=== PATIENT | female | born 1975 | race African-American/Black ===

== ENCOUNTER 2024-12-21 01:06 | Day surgery (SDC) | payer OTHER, MEDICAID, SELFPAY ==
--- OUTSIDE RECORDS SUMMARY | 2017-02-01 02:39 | XMS_ITS | Continuity of Care Document ---
Author Organization [facility] Address [address] [place] [address] Phone Care Team Providers Care Antitank Assault Gunner Name Role Phone Unavailable Unavailable Unavailable Medications Medication Instructions Dosage Effective Dates (start - stop) Status Comments methylprednisolone 4 mg tablets in a dose pack take as directed - Active metformin 500 mg tablet take 1 tablet by oral route 2 times every day with morning and evening meals 500 MG - Active cromolyn 4 % eye drops instill 1 drop by ophthalmic route 4 times every day into affected eye(s) 1.00 drop - No Longer Active Procedures Procedure Date Offic/outpt E&m [facility] Service(s) provided in the office during regularly Dexamethasone Na Phosphate 1 Mg 017 Methylprednisolone Acetate 80 Mg 2016 Therapeutic, Prophylactic, Or Diagnostic Inj Sub Q Advance Directives Directive Yes / No Effective Date File Name No Information Encounters Encounter Description Practice Location Reason(s) For Visit Diagnoses Date Provider Providers Copied on Encounter [facility], [address], [place], [place], [id number], tel:[phone] [facility] No Information No Information Offic/outpt E&m [facility], [address], [place], [place], [id number], tel:[phone] [facility] eye problem (chief complaint) Allergic reaction to chemical substance, undetermi [address] Emmanuel Forrest. [address], [place], [place], [id number], [place]. tel:[phone] Family History Family Member Type Diagnosis Age At Onset No Information Payers Payer name Insurance type Covered constitution party ID Authoriza tion(s) [facility] Multiplan [facility] [id number] Social History Type Description Quantity Date Captured Comments Sex Female Smoking Status No Information Chief Complaint And Reason For Visit No Information Reason For Referral Reason For Referral No Information History Of Present Illness Encounter Date Complaint History Of Prese nt Illness No Information Functional Status Date Functional Assessmen t No Information Instructions Date Instruction Additional Infor mation No Information Assessments Type Assessment Date No Information Patient Care Teams Name Effective Dates (start - stop) Status Members No Information
--- OUTSIDE RECORDS SUMMARY | 2017-06-07 | XMS_ITS | Encounter Summary ---
Author Organization [facility] Healthcare Address [address] [place] [address] Care Team Providers Care Shirt Sorter Name Role Phone Unavailable Primary Care Provider Unavailabl e Reason for Visit * Diagnostic Imaging (Routine) - Closed Specialty Diagnoses / Procedures Referred By Karen t Referred To Contact Procedures Breast Imaging Screening Outside Reference Referral, Self Referral ID Status Reason Start Date Expiration Date Visits Re quested Visits Authorized [id number] Closed 03/19/2022 04/18/2023 1 1 Encounter Details Date Type Department Care Team (Late st Contact Info) Description 06/07/2017 Hospital Encounter [facility] [address] [place] [id number] Social History Tobacco Use Types Packs/Day Years Used Date Smoking Tobacco: Never Passive Smoke Exposure: Never Alcohol Use Standard Drinks/Week Comments Yes 1 (1 standard drink = 0.6 oz pur e alcohol) AUDIT-C Answer Date Recorded Q1: How often do you have a drink containing alc ohol? 2-4 times a month 12/04/2024 Q2: How many drinks containi ng alcohol do you have on a typical day when you are drinking? 1 or 2 12/04/2024 Q3: How often do you have si x or more drinks on one occasion? Never 12/04/2024 Personal Safety Answer Date Recorded Have you ever been in or are you currently in a harmful physical or emotional relationship or is someone making you feel afraid or unsafe? 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 2-4 times a month 12/04/2024 1:17 PM ERMIAST Lenin Reddy R MA Q2: How many drinks containing alcohol do you have on a typical day when you are drinking? 1 or 2 12/04/2024 1:17 PM ERMIAST Lenin Reddy R MA Q3: How often do you have six or more drinks on one occasion? Never 12/04/2024 1:17 PM ERMIAST Lenin Reddy R MA documented as of this encounter Plan of Treatment Not on file documented as of this encounter Procedures Procedure Name Priority Date/Time Associated Diagnosis Comments BREAST IMAGING MG SCREENING OUTSIDE REFERENCE Routine 06/07/2017 12:00 AM CDT documented in this encounter Results * Breast Imaging Screening Outside Reference (06/07/2017 12:00 AM CDT) Impressions RAD_MAMMO_[facility] - 03/19/2022 10:53 AM DRIER BELT CONVEYOR These images are for Reference purposes only and have not been reviewed by [facility]iology. There will be no report generated by a [facility] Radiologist. Narrative RAD_MAMMO_[facility] - 03/19/2022 10:53 AM DRIER BELT CONVEYOR EXAMINATION: Images For Reference Purposes Only us Self Referral IMG MAMMO PROCEDURES Final Resul t [facility]_MAMMO[facility] documented in this encounter Visit Diagnoses Not on filedocumented in this encounter
--- OUTSIDE RECORDS SUMMARY | 2019-03-01 01:00 | XMS_ITS | Encounter Summary ---
Author Organization [facility] Healthcare Address [address] [place] [address] Care Team Providers Care Motor Vehicle Or Caravan Salesperson Name Role Phone Unavailable Primary Care Provider Unavailabl e Reason for Visit * Diagnostic Imaging (Routine) - Closed Specialty Diagnoses / Procedures Referred By Karen t Referred To Contact Procedures Breast Imaging Screening Outside Reference Referral, Self Referral ID Status Reason Start Date Expiration Date Visits Re quested Visits Authorized [id number] Closed 03/19/2022 04/18/2023 1 1 Encounter Details Date Type Department Care Team (Late st Contact Info) Description 03/01/2019 Hospital Encounter [facility]) [address] [place] [id number] Social History Tobacco Use Types Packs/Day Years [...] on file Legal Sex Female 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 2-4 times a month 12/04/2024 1:17 PM Lenin Ledesma R MA Q2: How many drinks containing alcohol do you have on a typical day when you are drinking? 1 or 2 12/04/2024 1:17 PM Lenin Ledesma R MA Q3: How often do you have six or more drinks on one occasion? Never 12/04/2024 1:17 PM Lenin Ledesma R MA documented as of this encounter Plan of Treatment Not on file documented as of this encounter Procedures Procedure Name Priority Date/Time Associated Diagnosis Comments BREAST IMAGING MG SCREENING OUTSIDE REFERENCE Routine 03/01/2019 12:00 AM FUMIGATOR AND STERILIZER documented in this encounter Results * Breast Imaging Screening Outside Reference (03/01/2019 12:00 AM FUMIGATOR AND STERILIZER) Impressions [facility]_MAMMO[facility] - 03/19/2022 10:52 AM FUMIGATOR AND STERILIZER These images are for Reference purposes only and have not been reviewed by [facility] Radiology. There will be no report generated by a [facility] Radiologist. Narrative RAD_MAMMO_[facility] - 03/19/2022 10:52 AM FUMIGATOR AND STERILIZER EXAMINATION: Images For Reference Purposes Only us Self Referral IMG MAMMO PROCEDURES Final Resul t RAD_MAMMO[facility] documented in this encounter Visit Diagnoses Not on filedocumented in this encounter
[2024-12-18 09:19] VITALS: BMI 38.7
--- OUTSIDE RECORDS SUMMARY | 2024-12-19 07:54 | XMS_ITS | Encounter Summary ---
Author Organization [facility] Healthcare Address [address] [place] [address] Care Team Providers Care Fishing Vessel Captain Name Role Phone Jose GHannah Primary Care Provider [phone] Reason for Visit * Diagnostic Imaging (Routine) - Pending Review Specialty Diagnoses / Procedures Referred By Karen chicas Referred To Contact Diagnoses Well woman exam Procedures Screening Mammogram Bilateral w Trace w Implants SCREENING MAMMOGRAM BILATERAL W TRACE Carrie Bowens, MACHO [address] [address] Phone: tel: fax: [facility] (All Locations) Referral ID Status Reason Start Date Expiration Date V isits Requested Visits Authorized [id number] Pending Review 12/04/2024 01/03/2026 1 1 Encounter Details Date Type Department Care Team (Latest Contact Info) Description 12/19/2024 7:54 AM CDT - 12/19/2024 11:59 PM CDT Hospital Encounter [facility] Breast [facility]) [address] [place] [phone] Well woman exam Discharge Disposition: Discharge to home or self care Social History Tobacco Use Types Packs/Day Years [...] on file Legal Sex Female 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 Gender Identity Not on file Sexual Orientation Not on file documented as of this encounter Last Filed Vital Signs Vital Sign Reading Time Taken Comments Blood Pressure - - Pulse - - Temperature - - Respiratory Rate - - Oxygen Saturation - - Inhaled Oxygen Concentration - - Weight 102.1 kg (225 lb) 12/19/2024 8:25 AM CDT Height 162.6 cm (5' 4) 12/19/2024 8:25 AM CDT Body Mass Index 38.62 12/19/2024 8:25 AM CDT documented in this encounter Medications at Time of Discharge acetaminophen (TYLENOL) 325 mg tablet Take 650 mg by mouth every 4 (four) hours as needed 09/27/2019 celecoxib (CeleBREX) 100 mg capsule TAKE 1 CAPSULE(100 MG) BY MOUTH TWICE DAILY 60 capsule 02/23/2021 colestipoL (COLESTID) 1 gram tablet 12/12/2024 cyclobenzaprine (FLEXERIL) 10 mg tabletIndication s:Traumatic incomplete tear of right rotator cuff, subsequent encounter Take 1 tablet (10 mg total) by mouth every 8 (eight) hours as needed for muscle spasms 20 tablet 01/28/2021 dextroamphetamin e-amphetamine (ADDERALL) 10 mg tablet 12/04/2020 diclofenac sodium (VOLTAREN) 1 % gel Apply 4 g topically 4 (four) times a day 12/22/2020 fluticasone propionate (FLONASE) 50 mcg/actuation nasal spray [place] 1 spray every day by intranasal route for 30 days. 02/28/2023 loperamide (IMODIUM A-D) 2 mg tablet Take 1 tablet twice a day by oral route. 11/05/2024 omeprazole (PriLOSEC) 20 mg capsule Take 20 mg by mouth daily before breakfast ondansetron (ZOFRAN) 4 mg tablet Take 1 tablet (4 mg total) by mouth every 6 (six) hours as needed for nausea or vomiting 12 tablet 11/23/2023 oxyCODONE-acetam inophen (PERCOCET) 5-325 mg per tabletIndication s:Pain Take 1 tablet by mouth every 4 (four) hours as needed for pain 12 tablet 11/23/2023 sodium fluoride-pot nitrate 1.1-5 % paste 12/15/2020 valsartan-hydroc hlorothiazide (DIOVAN-HCT) 320-25 mg per tablet Take 1 tablet every day by oral route for 90 days, for high blood pressure. 04/26/2023 documented as of this encounter Discharge Disposition Disposition Code Departure Means Destination Discharge to home or self care documented in this encounter Plan of Treatment Not on file documented as of this encounter Procedures Procedure Name Priority Date/Time Associated Diagnosis Comments SCREENING MAMMOGRAM BILATERAL W TRACE W IMPLANTS Schedule Routine, Read Routine (OP Routine) 12/19/2024 8:34 AM CDT Well woman exam documented in this encounter Results * Screening Mammogram Bilateral w Trace w Implants (12/19/2024 8:34 AM CDT) Anatomical Region Laterality Modality Breast Bilateral Mammography Impressions 12/20/2024 5:06 PM CDT Bilateral No evidence of malignancy in either breast. OVERALL BI-RADS FINAL ASSESSMENT: 2 - Benign RECOMMENDATION: Recommend bilateral annual screening mammography. Narrative 12/20/2024 5:06 PM CDT EXAMINATION: Screening Mammogram Bilateral w Trace w Implants: 12/19/2024 COMPARISON: Relevant prior studies available at the time of interpretation were reviewed, including the most recent mammogram on: 03/16/2022. TECHNIQUE: Mammography was performed with 2D and 3D digital breast tomosynthesis (DBT) images. CAD was utilized. BREAST PARENCHYMAL COMPOSITION: There are scattered areas of fibroglandular density. FINDINGS: Bilateral There is no suspicious mass, calcification, or architectural distortion in either breast. Bilateral silicone implants are present. Carrie Bowens NP IMG MAMMO PROCEDURES Final Result documented in this encounter Visit Diagnoses Diagnosis Well woman exam Routine general medical examination at a health care facility documented in this encounter Care Teams Fishing Vessel Captain Relationship Specialty Start Date End Date Hannah Araiza DO PCP - General Family Medicine 03/16/22 documented as of this encounter
--- OUTSIDE RECORDS SUMMARY | 2024-12-19 08:53 | XMS_ITS | Encounter Summary ---
Author Organization [facility] Healthcare Address [address] [place] [id number] Care Team Providers Care Boot And Saddle Repair Person Name Role Phone Hannah Araiza DO Primary Care Provider [phone] Reason for Referral * Diagnostic Imaging (Routine) - Closed Specialty Diagnoses / Procedures Referred By Contac t Referred To Contact Diagnoses Dysmenorrhea Pelvic and perineal pain Procedures US Pelvis Complete Carrie Bowens NP [address] [place] [address] Phone: tel: fax: [facility] (All Locations) Referral ID Status Reason Start Date Expiration Date Visits Re quested Visits Authorized [id number] Closed 12/04/2024 01/03/2026 1 1 Reason for Visit * Diagnostic Imaging (Routine) - Closed Specialty Diagnoses / Procedures Referred By Contac t Referred To Contact Diagnoses Dysmenorrhea Pelvic and perineal pain Procedures US Pelvis Complete Carrie Bowens NP [address] [address] Phone: tel: fax: [facility] (All Locations) Referral ID Status Reason Start Date Expiration Date Visits Re quested Visits Authorized [id number] Closed 12/04/2024 01/03/2026 1 1 Encounter Details Date Type Department Care Team (Latest Contact Info) Description 12/19/2024 8:53 AM CDT - 12/19/2024 11:59 PM CDT Hospital Encounter [facility] Ul[facility]ound [address] [facility], [address]th [address], [address] [facility] [place] [address] Dysmenorrhea Discharge Disposition: Discharge to home or self [...] on file Legal Sex Female 5:43 PM VEHICLE BODY SANDER Gender Identity Not on file Sexual Orientation Not on file documented as of this encounter Medications at Time of Discharge [...] fluticasone propionate (FLONASE) 50 mcg/actuation nasal spray [place] 1 spray every day by intranasal route [...] Procedure Name Priority Date/Time Associated Diagnosis Comments US PELVIS COMPLETE Schedule Routine, Read Routine (OP Routine) 12/19/2024 8:53 AM CDT Dysmenorrhea documented in this encounter Results * US Pelvis Complete (12/19/2024 8:53 AM CDT) Cul de Sac No free fluid visualized VIEWPOINT Endometrial Thickness 3.6 mm&millim eters VIEWPOINT Anatomical Region Laterality Modality Pelvis N/A Ultrasound 12/19/2024 8:53 AM CDT Impressions 12/19/2024 10:06 AM CDT 49 yo who presents for pelvic US in setting of dysmenorrhea. 1. The uterus is anteverted and normal in size and contour. There are two intramural anterior fibroids identified with the above measurements noted. 2. The endometrium measures 3.6 mm. 3. Neither ovary is adequately visualized today. There are no obvious adnexal masses. 4. There is no pelvic free fluid. 5. 3D coronal imaging of the uterus is unremarkable. Narrative Procedure Note Daniela Pedraza MD - 12/19/2024 IMPRESSION: 49 yo who presents for pelvic US in setting of dysmenorrhea. 1. The uterus is anteverted and normal in size and contour. There are twointramural anterior fibroids identified with the above measurements noted. 2. The endometrium measures 3.6 mm. 3. Neither ovary is adequately visualized today. There are no obviousadnexal masses. 4. There is no pelvic free fluid. 5. 3D coronal imaging of the uterus is unremarkable. us Carrie Bowens FUR STRETCHER IMG US PROCEDURES Fi nal Result documented in this encounter Visit Diagnoses Diagnosis Dysmenorrhea documented in this encounter Care Teams Boot And Saddle Repair Person Relationship Specialty Start Date End Date Hannah Araiza DO PCP - General Family Medicine 03/16/22 documented as of this encounter
--- OUTSIDE RECORDS SUMMARY | 2024-12-21 01:11 | XMS_ITS | Encounter Summary ---
Author Organization [facility] Address [address] [place] [address] Phone Care Team Providers Care Tablet Coater Name Role Phone Hannah Araiza DO Primary Care Provider Encounter Details Date Type Department Care Team (Latest Contact Info) Description 12/05/2024 Results Follow-Up [facility] Medicine Obstetrics and Gynecology [address] [facility] 7th [address] [place] [address] Carrie Bowens, MACHO [address] [address] N. gonorrhoeae/C. 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
--- OUTSIDE RECORDS SUMMARY | 2024-12-21 01:11 | XMS_ITS | Clinical Summary ---
Author Organization [facility] Address [address] [place] [address] Care Team Providers Care Installation Service Representative Name Role Phone Freda Pimentel DO Primary Care Provider ImaniCordell Lynne MURRAY Unavailable [phone] Source Comments [facility],non-owned Affiliates and Associated Physician Practices is amultiple site organization consisting of ambulatory clinics and hospital sitesin [place], [place], [place] and [place]. This disclosure is being madepursuant to the Care Everywhere program and may not contain all information available regarding this patient. Last updated 17.[facility] Allergies Active Allergy Reactions Criticality Noted Date Comments Nsaids Unknown 09/25/2019 Medications * Be aware that medications may not be up to date on this document. Alwaysverify current medications with the patient. lisinopril (PRINIVIL; ZESTRIL) 20 MG tablet Take 20 mg by mouth once daily Active omeprazole (PRILOSEC) 20 MG capsule Take 20 mg by mouth daily before breakfast Active acetaminophen (TYLENOL) 325 MG tablet Take 2 tablets by mouth every 4 hours as needed Maximum allowable Acetaminophen amount = 4 Grams (4000 mg) / 24 hours. 09/27/19 20 Active naloxone HCl (NARCAN) 4 MG/0.1ML nasal spray [place] 1 (one) spray into the nose as needed (May repeat every 2 min in alternating nostrils until emergency medical help arrives for overdose) 2 device 07/07/19 21 Active Additional Information Patient not taking.Reported on 09/11/2020 silver sulfADIAZINE (SILVADENE) 1 % cream Apply to affected area once daily 80 g 1 09/19/19 21 Active ciprofloxacin (CIPRO) 500 MG tablet Take 1 (one) tablet by mouth 2 times daily 20 tablet 09/24/19 21 Active diclofenac sodium (VOLTAREN) 1 % gel Apply 4 (four) g to affected area 4 times daily 100 g 12/23/19 21 Active diclofenac sodium (VOLTAREN) 1 % gel Apply 4 (four) g to affected area 4 times daily 100 g 12/23/19 21 Active oxymetazoline (AFRIN) 0.05 % nasal sprayIndications :USE FOR NOT LONGER THAN A WEEK [place] 1 (one) spray into each nostril 2 times daily Reasons: USE FOR NOT LONGER THAN A WEEK 37 mL 07/22/19 22 Active loratadine (CLARITIN) 10 MG tablet Take 1 (one) tablet by mouth once daily 30 tablet 07/22/19 22 Active benzonatate (TESSALON) 100 MG capsule Take 1 (one) capsule by mouth 3 times daily as needed for Cough 20 capsule 07/22/19 22 Active amLODIPine (NORVASC) 5 MG tablet Take 1 (one) tablet by mouth once daily 30 tablet 07/22/19 22 Active Active Problems Problem Noted Date Diagnosed Date HTN (hypertension) 09/11/2020 DM2 (diabetes mellitus, type 2) 09/11/2020 Primary osteoarthritis 09/11/2020 GLENN (iron deficiency anemia) 09/11/2020 GERD (gastroesophageal reflux disease) Status post breast augmentation 09/11/2020 Wound of left upper extremity 09/11/2020 Jejunitis 09/26/2019 Immunizations Immunization Administration Dates Next Due Covid Moderna primary monovalent 12+ yr 0.5mL ,07/07/2020 Family History Medical History Relation Name Comments Cancer - Breast Mother Cancer - Ovarian Neg Hx Relation Name Status Comments Father Alive Mother Alive Sister Alive Social History Tobacco Use Types Packs/Day Years Used Date Smoking Tobacco: Never Smokeless Tobacco: Never Tobacco Cessation:Counseling Given: No Alcohol Use Standard Drinks/Week Comments Yes 0 (1 standard drink = 0.6 oz pur e alcohol) socially PHQ-2 Answer Date Recorded PHQ2 TOTAL SCORE 0 10/08/2020 Education Answer Date Recorded What is the highest level of school you have completed or the highest degree you have received? 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 Gender Identity Not on file Sexual Orientation Not on file Last Filed Vital Signs Vital Sign Reading Time Taken Comments Blood Pressure 138/92 11/23/2023 1:24 PM CDT Pulse 83 11/23/2023 1:24 PM CDT Temperature 35.5 C (95.9 F) 11/23/2023 1:24 PM CDT Respiratory Rate 16 11/23/2023 1:24 PM CDT Oxygen Saturation 95% 11/23/2023 1:24 PM CDT Inhaled Oxygen Concentration - - Weight 89.8 kg (198 lb) 07/23/2021 6:26 AM CDT Height 162.6 cm (5' 4) 07/23/2021 6:26 AM CDT Body Mass Index 33.99 07/23/2021 6:26 AM CDT Plan of Treatment Health Maintenance Due Date Last Done Comments COLOGUARD (AGES 45-75) - COLON CA SCREENING 1973 COLON MONITORING 1973 COLONOSCOPY - COLON CA SCREENING 1973 CT COLONOGRAPHY - COLON CA SCREENING 1973 Colorectal Cancer Screening 1973 FIT - COLON CA SCREENING 1973 FLEX SIG - COLON CA SCREENING 1973 HIV SCREENING 02/14/1988 HEPATITIS C SCREENING 02/09/1991 DTAP/TDAP/TD VACCINES (1 - Tdap) 02/14/1992 HEPATITIS B VACCINE (1 of 3 - 19+ 3-dose series) 02/14/1992 PNEUMOCOCCAL VACCINE 50+ (1 of 2 - PCV) 02/14/1992 DIABETES-STATIN 2013 PAP SMEAR 07/10/2017 07/10/2014 DIABETES RETINOPATHY SCREENING 09/11/2020 DIABETES-FOOT EXAM WITH MONOFILAMENT 09/11/2020 DIABETES-HGB A1C 09/11/2020 DIABETES-SERUM CREATININE 07/21/20222021, 09/27/2019, 09/25/2019 ZOSTER VACCINE (1 of 2) 2023 DEPRESSION SCREENING 02/22/2024 DIABETES - URINE PROTEIN SCREENING 02/22/2024 MAMMOGRAM 03/16/2024 03/16/2022, 02/22, 11/18/2015, Additional history exists COVID-19 VACCINE ( season) 2024 09/11/2020, 07/07/2020 INFLUENZA VACCINE (#1) 2024 12/19/2018 HIB VACCINE Aged Out No longer eligi ble based on patient's age to complete this topic HPV VACCINE Aged Out No longer eligi ble based on patient's age to complete this topic MENINGOCOCCAL (Group B) VACCINE SHARED DECISION-MAKING Aged Out No longer eligible based on patient's age to complete this topic MENINGOCOCCAL GROUPS A/C/Y/W VACCINE Aged Out No longer eligible based on patient's age to complete this topic Procedures Procedure Name Priority Date/Time Associated Diagnosis Comments COMPREHENSIVE METABOLIC PANEL STAT 07/21/2021 8:00 AM CDT MAMMO BILAT SCREENING Routine 11/18/2015 7:53 AM CDT Visit for screening mammogram from Last 3 Months or Most Recently Relevant to Health Maintenance Results * (ABNORMAL) COMPREHENSIVE METABOLIC PANEL (07/21/2021 8:00 AM CDT) Glucose 99 70 - 105 mg/dL 07/21/2021 8:22 AM CDT [facility] Sodium 139 136 - 145 mmol/L 07/21/2021 8:22 AM CDT [facility] Potassium 4.1 3.5 - 5.1 mmol/L 07/21/2021 8:22 AM CDT [facility] Chloride 107 98 - 107 mmol/L 07/21/2021 8:22 AM CDT [facility] CO2 23 23 - 31 mmol/L 07/21/2021 8:22 AM CDT [facility] Calcium 8.8 8.4 - 10.4 mg/dL 07/21/2021 8:22 AM CDT [facility] Anion Gap 9 8 - 18 mmol/L 07/21/2021 8:22 AM CDT [facility] BUN 10 7 - 18.7 mg/dL 07/21/2021 8:22 AM CDT [facility] Creatinine 0.82 0.57 - 1.11 mg/dL 07/21/2021 8:22 AM CDT [facility] Alkaline Phosphatase 91 40 - 150 U/L 07/21/2021 8:22 AM CDT [facility] ALT 17 0 - 61 U/L 07/21/2021 8:22 AM CDT [facility] AST 17 5 - 34 U/L 07/21/2021 8:22 AM CDT [facility] Protein Total 7.1 6.4 - 8.3 gm/dL 07/21/2021 8:22 AM CDT [facility] Albumin 3.8 3.5 - 5.2 gm/dL 07/21/2021 8:22 AM CDT [facility] Bilirubin Total 0.9 0.2 - 1.2 mg/dL 07/21/2021 8:22 AM CDT [facility] eGFR by CKD-EPI 88(L) >=90 mL/min/1.7 3 m2 07/21/2021 8:22 AM CDT [facility] Blood BLOOD SPECIMEN / Unknown Venipuncture / Unknown 07/21/2021 8:00 AM CDT 07/21/2021 8:04 AM CDT Immanuel Tao MD LAB - CHEMISTRY ORDERABLES Anabel l Result Performing Organization Address City/State/[facility] Co de Phone Number [facility] [address] [place] [address] * MAMMO SCREENING DIGITAL BILATERAL (11/18/2015 7:53 AM CDT) Anatomical Region Laterality Modality Breast Bilateral Mammography 11/18/2015 9:27 AM CDT Impressions 11/18/2015 9:29 AM CDT 1. No radiographic evidence of malignancy. 2. Recommend routine screening. BI-RADS category: 1 - NEGATIVE RECOMMEND ANNUAL SCREENING Narrative 11/18/2015 9:29 AM CDT BILATERAL SCREENING MAMMOGRAM WITH 3D/TOMOGRAPHY AND CAD HISTORY: Screening COMPARISON: 10/08/2014. DATE: 11/18/2015 7:54 AM BREAST PARENCHYMA: The breast parenchyma is scattered fibroglandular. TECHNIQUE: Digital bilateral mediolateral oblique and craniocaudal and 3D/tomographic mammography is performed. Computer assisted diagnosis (CAD) version 6.2 is used interpretation of the study. INTERPRETATION: MLO and CC view of the right and left breast was performed. Examination of the right and left breast shows no new mass or calcification to suggest malignancy. us Barba Margarito DO MAMMO ORDERABLES Final Resul t from Last 3 Months or Most Recently Relevant to Health Maintenance Insurance MEDICAID [place] [facility] MEDICAID [place] Advance Directives * Full Code (Latest Code Status on File) Date Activated Date Inactivated Comments 09/26/2019 4:34 PM 09/27/2019 7:51 PM Care Teams Installation Service Representative Relationship Specialty Start Date End Date Freda Pimentel DO [address] [facility] [id number] PCP - General Family Medicine 05/03/13 Cordell Diallo DO [address] [place] [id number] Enterostomal Therapist/Wound Care Family Medicine 10/02/20
--- OUTSIDE RECORDS SUMMARY | 2024-12-21 01:12 | XMS_ITS | Patient Health Record ---
Author Organization [facility] Address [address] [place] [address] Care Team Providers Care Construction Trench Digger Name Role Phone Freda Pimentel DO Primary Care Provider Unava ilable Allergies No Known Allergies Reason For Referral No Information Social History Tobacco Use: Social History Observation Description Date Details (start date - stop date) Never Smoker NA - NA Tobacco Use/Smoking Question Answer Notes Are you a: never smoker Problems Problem Type SNOMED Code ICD Code Onset Dates Problem Status W/U Status Risk Notes Problem Disorder due to type 2 diabetes mellitus (936225785) Type 2 diabetes mellitus with unspecified complications (E11.8) Active confirmed Problem Essential hypertension (07752325) Essential (primary) hypertension (I10) Active confirmed Problem Dermatitis (365628866) Dermatitis (L30.9) Active confirmed Problem Angiomatous (qualifier value) (650874280) ANGIOMA (D18.00) Active confirmed Problem Mammogram - screening (66964015) VISIT FOR SCREENING MAMMOGRAM (Z12.31) Inactive confirmed Plan Of Treatment Pending Test Test Name Order Date PUNCH BIOPSY, SINGLE LESION - 45010 04/22 Venipuncture[i] 05/22/2020 Venipuncture[i] 07/24/2020 Insurance Providers Payer Name Payer Address Payer Phone Subscriber Number Group Number Insured Name Patient Relationship to Insured Coverage Start Date Coverage End Date [employer] [address] [place] [phone] [id number] ADI BOLANOS Self - patient is the insured HEALTHY BLUE [facility] [address] [address] [place] [phone] [id number] ADI BOLANOS Self - patient is the insured
--- OUTSIDE RECORDS SUMMARY | 2024-12-21 01:12 | XMS_ITS | Encounter Summary ---
Author Organization [facility] Address [address] [place] [address] Care Team Providers Care Branch Examiner Name Role Phone No, Physician Primary Care Provider [phone] Miscellaneous, Not In File Primary Care Provider Unavailable Miscellaneous, Not In File Primary Care Provider Unavailable Cass Resendiz MD Primary Care Provider UnaHannah Troy DO Primary Care Provider [phone] Encounter Details Date Type Department Care Team (Late st Contact Info) Description 12/18/2020 Telephone [facility] [place] [address] Carmen Benavides PT Social History Tobacco Use Types Packs/Day Years Used Date Smoking Tobacco: Never Alcohol Use Standard Drinks/Week Comments Not Currently 0 (1 standard drink = 0.6 oz pur e alcohol) Comments No Sex and Gender Information Value Date Recorded Sex Assigned at Not on file 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 Gender Identity Not on file Sexual Orientation Not on file documented as of this encounter Plan of Treatment Not on file documented as of this encounter Visit Diagnoses Not on filedocumented in this encounter Care Teams Branch Examiner Relationship Specialty Start Date End Date No, Physician PCP - General 11/23/20 01/26/21 Miscellaneous, Not In File PCP - General 01/27/21 Miscellaneous, Not In File PCP - General 01/28/21 Cass Resendiz MD [address] [place] [address] PCP - General Neurology 03/11/22 03/15/22 Hannah Araiza DO [address] [place] [address] PCP - General Family Medicine 03/16/22 documented as of this encounter
--- OUTSIDE RECORDS SUMMARY | 2024-12-21 01:12 | XMS_ITS | Clinical Summary ---
Author Organization [facility] Address [address] [place] [id number] Care Team Providers Care Checker And Packer Name Role Phone Hannah Araiza Primary Care Provider [phone] Allergies Active Allergy Reactions Criticality Noted Date Comments Amlodipine Hives High 04/26/2023 Nsaids (Non-Steroidal Anti-Inflammatory Drug) Other (See comments) Low 11/23/2020 Gastric bypass Non-steroidal anti-inflammatory agent (substance) Medications acetaminophen (TYLENOL) 325 mg tablet Take 650 mg by mouth every 4 (four) hours as needed 0 Active omeprazole (PriLOSEC) 20 mg capsule Take 20 mg by mouth daily before breakfast Active dextroamphetami ne-amphetamine (ADDERALL) 10 mg tablet 1 Active diclofenac sodium (VOLTAREN) 1 % gel Apply 4 g topically 4 (four) times a day 1 Active sodium fluoride-pot nitrate 1.1-5 % paste 1 Active cyclobenzaprine (FLEXERIL) 10 mg tabletIndicatio ns:Traumatic incomplete tear of right rotator cuff, subsequent encounter Take 1 tablet (10 mg total) by mouth every 8 (eight) hours as needed for muscle spasms 20 tablet 1 Active Additional Information Patient not taking.Reported on 12/19/2024 celecoxib (CeleBREX) 100 mg capsule TAKE 1 CAPSULE(100 MG) BY MOUTH TWICE DAILY 60 capsule 2 Active Additional Information Patient not taking.Reported on 12/19/2024 oxyCODONE-aceta minophen (PERCOCET) 5-325 mg per tabletIndicatio ns:Pain Take 1 tablet by mouth every 4 (four) hours as needed for pain 12 tablet 4 Active Additional Information Patient not taking.Reported on 12/19/2024 ondansetron (ZOFRAN) 4 mg tablet Take 1 tablet (4 mg total) by mouth every 6 (six) hours as needed for nausea or vomiting 12 tablet 4 Active Additional Information Patient not taking.Reported on 12/19/2024 valsartan-hydro chlorothiazide (DIOVAN-HCT) 320-25 mg per tablet Take 1 tablet every day by oral route for 90 days, for high blood pressure. 4 Active loperamide (IMODIUM A-D) 2 mg tablet Take 1 tablet twice a day by oral route. 5 Active fluticasone propionate (FLONASE) 50 mcg/actuation nasal spray Vernon 1 spray every day by intranasal route for 30 days. 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 She still having ongoing issues despite six sessions of therapy. After reviewing the treatment options she elected undergo a cortisone injection today. She tolerated the procedure well. Therapy is likely be beneficial but she is not making head where she is attending and she may want to consider another location. Traumatic incomplete tear of right rotator cuff 12/09/2020 Assessment & Plan (12/09/2020 3:13 PM CDT): MRI reveals no full-thickness tears of the rotator cuff but tendinopathy with tendinitis of the biceps tendon bursitis and some arthritis at the AC joint. The majority of patients with this condition respond well to conservative measures. After reviewing the treatment options patient elected undergo a cortisone injection today and will enroll in physical therapy. She is return the office in six weeks. Complete rupture of rotator cuff 11/27/2020 Assessment & Plan (11/27/2020 11:43 AM CDT): Patient's history exam is consistent with a complete tear of the rotator cuff. Would recommend obtaining an MRI to evaluate the take of the cuff initiate appropriate treatment once results are available. The patient should avoid any heavy lifting pushing or pulling in the meantime. DM2 (diabetes mellitus, type 2) 09/11/2020 GERD (gastroesophageal reflux disease) HTN (hypertension) 09/11/2020 GLENN (iron deficiency anemia) 09/11/2020 Primary osteoarthritis 09/11/2020 Status post breast augmentation 09/11/2020 Wound of left upper extremity 09/11/2020 Jejunitis 09/26/2019 Encounters Date Type Department Care Team Description 12/19/2024 10:00 AM CDT Office Visit [facility] Medicine Obstetrics and Gynecology [address] [place] [address] 7th Floor [address] [place] [address] Carrie Bowens NP Spotting (Primary Dx) 12/19/2024 8:53 AM CDT - 12/19/2024 11:59 PM CDT Hospital Encounter [facility] - Ultrasound [address] [facility], 7th Floor, [address] [place] [address] Dysmenorrhea Discharge Disposition: Discharge to home or self care 12/19/2024 7:54 AM CDT - 12/19/2024 11:59 PM CDT Hospital Encounter [facility] [address] [place] [id number] Well woman exam Discharge Disposition: Discharge to home or self care 12/05/2024 Results Follow-Up [facility] Medicine Obstetrics and Gynecology [address] [place] [address] 7th Floor [address] [place] [address] Carrie Bowens NP N. gonorrhoeae/C. trachomatis Amplification Endocervical, Trichomonas vaginalis PCR Endocervical, RPR Blood, Additional followed-up results: 3 12/04/2024 2:25 PM CDT Lab [facility] [address] [place] [address] Screening for STD (sexually transmitted disease) 12/04/2024 2:10 PM CDT - 12/04/2024 11:59 PM CDT Hospital Encounter [facility] [address] [place] [address] Discharge Disposition: Discharge to home or self care 12/04/2024 1:00 PM CDT Office Visit [facility] Medicine Obstetrics and Gynecology [address] [facility] 7th [address] [place] [address] Carrie Bowens NP Well woman exam (Primary Dx); Screening for STD (sexually transmitted disease); Dysmenorrhea; Perimenopause 10/30/2024 1:40 PM CDT - 10/30/2024 11:59 PM CDT Hospital Encounter [facility] Radiology at [facility] [address] [place] [address] Left knee pain, unspecified chronicity Discharge Disposition: Discharge to home or self care 10/30/2024 1:00 PM CDT Office Visit [facility] Medicine Orthopaedic Surgery [address] [facility] [address] [place] [address] Lucho Villa PA Primary osteoarthritis of left knee (Primary Dx) from Last 3 Months Immunizations Immunization Administration Dates Next Due Hep B Vaccine 04/06/1999 Tdap 02/21/2019 Surgical History Surgery Date Site/Laterality Comments CHOLECYSTECTOMY GASTRIC BYPASS STOMACH SURGERY AUGMENTATION MAMMAPLASTY 02/22/2020 - 02/20/2021 Medical History Medical History Date Comments Hernia of abdominal cavity HTN (hypertension) 09/11/2020 Family History Medical History Relation Name Comments No Known Problems Father Breast cancer Mother Relation Name Status Comments Father Mother Social History Tobacco Use Types Packs/Day Years Used Date Smoking Tobacco: Never Passive Smoke Exposure: Never Tobacco Cessation:Counseling Given: Not Answered Alcohol Use Standard Drinks/Week Comments Yes 1 [...] on file Legal 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 Gender Identity Not on file Sexual Orientation Not on file Obstetrics History Para Term AB IAB SAB Ectopic Multiple Livin g Live Births 7 3 1 2 4 3 1 0 3 3 Date Outcome GA Total Labor Labor/2nd/3rd Weight Sex Type Anes PTL Johanne A1 A5 Name Clin IAB IAB SAB IAB 1998 CS-Cl assic al Living 2009 CS-Cl assic al Living 2020 Term CS-Cl assic al Living Last Filed Vital Signs Vital Sign Reading Time Taken Comments Blood Pressure 158/101 12/19/2024 9:55 AM CDT Pulse 74 11/23/2023 8:00 PM CDT Temperature 36.7 C (98.1 F) 11/23/2023 2:44 PM CDT Respiratory Rate 16 11/23/2023 8:00 PM CDT Oxygen Saturation 99% 11/23/2023 8:00 PM CDT Inhaled Oxygen Concentration - - Weight 104.8 kg (231 lb) 12/19/2024 9:55 AM CDT Height 162.6 cm (5' 4) 12/19/2024 9:55 AM CDT Body Mass Index 39.65 12/19/2024 9:55 AM CDT Plan of Treatment Health Maintenance Due Date Last Done Comments Albumin Creatinine Ratio, Urine 1973 Colon Cancer Screening-Colonoscopy 1973 Depression Screening 1973 Hemoglobin A1C 1973 Dilated Eye Exam 1973 Foot Exam 1973 Lipid Panel 1973 Pneumococcal vaccine <65 (1 of 2 - PCV) 02/14/1992 Zoster Vaccine (1 of 2) 2023 Breast Cancer Screening-Mammogram 03/16/2023 12/19/2024, 03/16/2022, 11/18/2015, Additional history exists Covid-19 Vaccine (4 - 2024-2 6 season) 2024 09/02/2021, 09/11/2020, 07/07/2020 eGFR 11/22/2024 11/23/2023 Regular Well Visit/Exam 18-64 12/04/2025 12/04/2024 DTaP/Tdap/Td Vaccine (2 - Td or Tdap) 02/21/2029 02/21/2019 Hepatitis B Screening Completed 04/06/1999 Influenza Vaccine Completed 11/05/2024, , 12/19/2018 Hepatitis C Screening Completed 12/04/2024 Procedures Procedure Name Priority Date/Time Associated Diagnosis Comments US PELVIS COMPLETE Schedule Routine, Read Routine (OP Routine) 12/19/2024 8:53 AM CDT Dysmenorrhea SCREENING MAMMOGRAM BILATERAL W TRACE W IMPLANTS Schedule Routine, Read Routine (OP Routine) 12/19/2024 8:34 AM CDT Well woman exam HEPATITIS B SURFACE ANTIGEN Routine 12/04/2024 2:30 PM CDT Screening for STD (sexually transmitted disease) HEPATITIS C ANTIBODY Routine 12/04/2024 2:30 PM CDT Screening for STD (sexually transmitted disease) HIV 1/2 ANTIBODY PLUS P24 ANTIGEN Routine 12/04/2024 2:30 PM CDT Screening for STD (sexually transmitted disease) RPR Routine 12/04/2024 2:30 PM CDT Screening for STD (sexually transmitted disease) TRICHOMONAS VAGINALIS PCR Routine 12/04/2024 2:10 PM CDT Screening for STD (sexually transmitted disease) N. GONORRHOEAE/C. TRACHOMATIS AMPLIFICATION Routine 12/04/2024 2:10 PM CDT Screening for STD (sexually transmitted disease) XR KNEE LEFT 3 VIEWS Schedule Routine, Read Routine (OP Routine) 10/30/2024 1:47 PM CDT Left knee pain, unspecified chronicity CA ARTHROCENTESIS ASPIR&/INJ MAJOR JT/BURSA W/O US Routine 10/30/2024 1:00 PM CDT Primary osteoarthritis of left knee EGFR STAT 11/23/2023 3:51 PM CDT from Last 3 Months or Most Recently Relevant to Health Maintenance Results * US Pelvis Complete (12/19/2024 8:53 [...] the uterus is unremarkable. us Carrie Bowens GUARD CHIEF IMG US PROCEDURES Fi nal Result * Screening Mammogram Bilateral w Trace w [...] silicone implants are present. Carrie Bowens NP [facility] MAMMO PROCEDURES Final Result * HIV 1/2 Antibody plus p24 Antigen Blood (12/04/2024 2:30 PM CDT) HIV 1/2 ab + p24 ag Nonreactive Nonreactive Comment:Nonreactive for HIV- 1 antigen and HIV-1/HIV-2 antibodies. No laboratory evidence of HIV infection. If acute HIV infection is suspected, consider testing for HIV-1 RNA. Current interpretive data was last revised on 21. Blood 12/04/2024 2:30 PM CDT 12/04/2024 3:58 PM CDT Carrie Bowens NP LAB MICROBIOLOGY - G ENERAL ORDERABLES Final Result DANIELLA ENRIQUE [facility] Department [place] [address] * Hepatitis C antibody Blood (12/04/2024 2:30 PM CDT) Hep C Ab Nonreactive Nonreactive Comment:Antibodies to HCV no t detected. Does NOT exclude the possibility of recent exposure to HCV. Current interpretive data was last revised on 21 Blood 12/04/2024 2:30 PM CDT 12/04/2024 3:58 PM CDT Carrie Bowens NP LAB MICROBIOLOGY - G ENERAL ORDERABLES Final Result [facility] [place] [address] * RPR Blood (12/04/2024 2:30 PM CDT) [facility] RPR Nonreactive Nonreactive Blood 12/04/2024 2:30 PM CDT 12/04/2024 3:58 PM CDT Carrie Bowens NP LAB MICROBIOLOGY - G ENERAL ORDERABLES Final Result Performing Organization Address [facility] Co de Phone Number [facility] [place] [address] * Hepatitis B Surface Antigen Blood (12/04/2024 2:30 PM CDT) [facility] HepBsAg Nonreactive Nonreactive Blood 12/04/2024 2:30 PM CDT 12/04/2024 3:58 PM CDT Carrie Bowens NP LAB MICROBIOLOGY - G ENERAL ORDERABLES Final Result Performing Organization Address City/State/[facility] Co de Phone Number [facility] [place] [address] * N. gonorrhoeae/C. trachomatis Amplification Endocervical (12/04/2024 2:10 PM CDT) [facility] C. trachomatis Not Detected [facility] N. gonorrhoeae Not Detected [facility] Comment: Interpretive Data This assay detects Chlamydia trachomatis and Neisseria gonorrhoeae by nucleic acid amplification testing (NAAT). This assay has been cleared by the [place] Food and Drug administration. The performance characteristics of this test have been verified by the [facility] Molecular Infectious Disease laboratory. The performance characteristics of this test have not been evaluated in individuals less than 14 years of age. Current Interpretive Data was last revised on 2022. Endocervical (None) 12/05/19 2:10 PM CDT 12/04/2024 5:06 PM CDT Carrie Bowens NP LAB MICROBIOLOGY - G ENERAL ORDERABLES Final Result Performing Organization Address [facility] de Phone Number [facility] [place] [address] [facility] * Trichomonas vaginalis PCR Endocervical (12/04/2024 2:10 PM CDT) Pathologist [facility] Trichomonas DNA Not Detected [facility] Comment: Interpretive Data This assay detects Trichomonas vaginalis by nucleic acid amplification testing (NAAT). This assay has been cleared by the [place] Food and Drug administration. The performance characteristics of this test have been verified by the [facility] Molecular Infectious Disease laboratory. The performance of this test has not been evaluated in individuals less than 18 years of age. Current Interpretive Data was last revised on 2022. Endocervical 12/04/2024 2:10 PM CDT 12/04/2024 5:06 PM CDT Carrie Bowens NP LAB MICROBIOLOGY - G ENERAL ORDERABLES Final Result Performing Organization Address [facility] de Phone Number [facility] [place] [address] [facility] * XR Knee Left 3 Views (10/30/2024 1:47 PM CDT) Anatomical Region Laterality Modality Lower Extremities, Knee Left Computed Radiography 10/30/2024 3:19 PM CDT Impressions 10/30/2024 3:19 PM CDT Mild medial and patellofemoral compartment left knee osteoarthritis. Electronically signed by: Shekhar Boggs M.D. Narrative 10/30/2024 3:19 PM CDT XR KNEE LEFT 3 VIEWS HISTORY: Left knee pain FINDINGS: 3 views of the left knee are obtained and interpreted without comparison. There is no fracture. There is mild medial and patellofemoral compartment osteoarthritis. Alignment is normal. There is a trace joint effusion. Procedure Note Shekhar Boggs MD - 10/30/2024 XR KNEE LEFT 3 VIEWS HISTORY: Left knee pain FINDINGS: 3 views of the left knee are obtained and interpreted without comparison. There is no fracture. There is mild medial and patellofemoral compartment osteoarthritis. Alignment is normal. There is a trace joint effusion. IMPRESSION: Mild medial and patellofemoral compartment left knee osteoarthritis. Electronically signed by: Shekhar Boggs M.D. us Lucho ADAMES IMG XR PROCEDURES Final Result * CA ARTHROCENTESIS ASPIR&/INJ MAJOR JT/BURSA W/O US (10/30/2024 1:00 PM CDT) Narrative Lucho Villa PA - 10/30/2024 1:00 PM CDT Lucho Villa PA 10/30/2024 3:00 PM Large Joint Injection: L knee Performed by: Lucho Villa PA Authorized by: Lucho Villa PA Large Joint Injection/Aspiration: Consent Given by: Patient Site marked: the procedure site was marked Timeout: prior to procedure the correct patient, procedure, and site was verified Verbal consent obtained: Yes Written consent obtained: No Supporting Documentation: Indications: Pain Procedure Details: Location: Knee Site: L knee Prep: patient was prepped using a clean technique Needle Size: 21 G Approach: Anterolateral Medications: 3 mL BUPivacaine HCl 0.25 % (2.5 mg/mL); 80 mg methylPREDNISolone acetate 40 mg/mL Patient tolerance: Patient tolerated the procedure well with no immediate complications us Lucho ADAMES IN CLINIC/BEDSIDE ORDERABLES Fi nal Result * eGFR (11/23/2023 3:51 PM CDT) eGFR 87 >=60 mL/min/1. 73 m2 Comment: Interpretive Data Reference Interval Normal >/= 90 mL/min/1.73m2 Mildly decreased* 60 - 89 mL/min/1.73m2 Mildly to moderately decreased 45 - 59 mL/min/1.73m2 Moderately to severely decreased 30 - 44 mL/min/1.73m2 Severely decreased 15 - 29 mL/min/1.73m2 Kidney Failure < 15 mL/min/1.73m2 *Relative to young adult level Estimated glomerular filtration rate is determined by the 2020 CKD-EPI equation recommended by the National Kidney Foundation (A Unifying Approach to GFR Estimation: Recommendations of the NKF-ASK Task Force on Reassessing the Inclusion of Race in Diagnosing Kidney Disease, JASN 2020). The CKD-EPI equation should not be used for patients with unstable renal function and has not been validated in children and those over 70. Current interpretive data was last reviewed 2020. Blood 11/23/2023 3:51 PM CDT 11/23/2023 4:09 PM CDT us Armando Victor MD LAB BLOOD ORDERABLES Final Result [facility]ST[facility]QUEL[facility] [address] Department [place] [address] from Last 3 Months or Most Recently Relevant to Health Maintenance Insurance [facility] [employer] sfil[employer] PLANS Address: [facility] [address] [place] [address] [employer] HEALTH PLANS Address: [facility] [address] [place] [address] IDPA Care Teams Checker And Packer Relationship Specialty Start Date End Date Jose G DO Hannah PCP - General Family Medicine 03/16/22
[2024-12-21 10:15] VITALS: BP 159/110; PULSE 75; RESP 20; TEMP 36.6; O2SAT 97
[2024-12-21] MEDS: LACTATED RINGERS 1,000 ML 150 ML IV CONT (10:28)
[2024-12-21 10:32] LABS: BEDSIDEPREGUCG Negative (Negative)
--- NOTE | 2024-12-21 11:12 | WPDANESEPPF ---
Anes - Initial Pre Proc Eval Procedure: Operation Date: 12/21/24 11:30 Proposed Procedures p Diagnostic Colonoscopy - Bernabe Cannon MD Date/Time: 12/21/24 11:12 Surgeon: Bernabe Cannon MD Pre Op Diagnosis: Irritable bowel syndrome with diarrhea Patient Data Age: 49 Gender: F Height: 1.63 m Weight: 103.4 kg Last Vital Signs Temp 97.8 F 12/21/24 10:15 Pulse 75 12/21/24 10:15 Resp 20 12/21/24 10:15 BP 159/110 H 12/21/24 10:15 Pulse Ox 97 12/21/24 10:15 O2 Del Method Room Air 12/21/24 10:15 Allergies Allergy/AdvReac Type Severity Reaction Status Date / Time No Known Allergies Allergy Verified 12/21/24 10:13 Home Medications ?Medication ?Instructions ?Recorded ?Confirmed ?Type dextroamphetamine-amphetamine 15 15 mg PO DAILY PRN anxiety 12/10/24 12/18/24 History mg tablet (Adderall) ergocalciferol (vitamin D2) 1,250 1,250 mcg PO WEEKLY 12/10/24 12/18/24 History mcg (50,000 unit) capsule loperamide 2 mg tablet 2 mg PO BID PRN loose stool 12/10/24 12/18/24 History ondansetron 4 mg disintegrating 4 mg PO Q8H 12/10/24 12/18/24 History tablet valsartan 320 1 tablet PO DAILY 12/10/24 12/21/24 History mg-hydrochlorothiazide 25 mg tablet venlafaxine 37.5 mg 37.5 mg PO DAILY 12/10/24 12/21/24 History capsule,extended release 24 hr colestipol 1 gram tablet 1 g PO BID #60 tabs 12/12/24 12/21/24 Rx Laboratory Tests 12/21/24 10:30 POC Urine HCG, Qual Negative (Negative) Patient hx anesthesia problems: none Family hx anesthesia problems: none Results Review: All pre-operative results and documents have been reviewed as part of the pre-operative evaluation. [facility] Past Medical History Medical History ADHD HTN (hypertension) Social History Social History (Reviewed 12/21/24 @ 11:12 by KARMA Egan Smoking status: Never smoker Alcohol intake: current Alcohol use details: Socially Living arrangements: alone Anes - Eval Final PreProcedure Day of Procedure 12/21/24 11:12 Patient weight: obese Lungs: normal air movement Airway: Mallampati scale class II Neurological: alert and oriented Last oral intake: >/= 8 hours ASA classification: II Emergent: no Anesthetic plan: proceed Anesthesia type and monitoring: general GIVS and standard monitoring Results Review: All pre-operative results and documents have been reviewed as part of the pre-operative evaluation. 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 BMI 39. Informed Consent: The patient's anesthetic plan and its attendant risks and benefits were discussed with the patient/family/POA. Questions were solicited and answers provided to the satisfaction of the patient/family/POA.
[2024-12-21 11:33] VITALS: BP 122/74; PULSE 76; RESP 16; O2SAT 98
[2024-12-21 11:43] VITALS: BP 130/78; PULSE 75; RESP 16; O2SAT 100
[2024-12-21 11:53] VITALS: BP 156/98; PULSE 72; RESP 17; O2SAT 100
--- NOTE | 2024-12-25 15:08 | PM.IMHP ---
H&P: HPI History of Present Illness Date/Time: 12/25/24 15:08 Chief Complaint: Screening colonoscopy Narrative: This is the patient's first colonoscopy. There are no GI symptoms and there is no family history of colorectal cancer. Review of Systems Review of Systems: All systems reviewed & are unremarkable except as noted in HPI and below [facility] Past Medical History Medical History ADHD HTN (hypertension) Social History Social History Alcohol intake: current Alcohol use details: Socially Living arrangements: alone Meds Home Medications and Allergies Home Medications ?Medication ?Instructions ?Recorded ?Confirmed ?Type dextroamphetamine-amphetamine 15 15 mg PO DAILY PRN anxiety 12/10/24 12/18/24 History mg tablet (Adderall) ergocalciferol (vitamin D2) 1,250 1,250 mcg PO WEEKLY 12/10/24 12/18/24 History mcg (50,000 unit) capsule loperamide 2 mg tablet 2 mg PO BID PRN loose stool 12/10/24 12/18/24 History ondansetron 4 mg disintegrating 4 mg PO Q8H 12/10/24 12/18/24 History tablet valsartan 320 1 tablet PO DAILY 12/10/24 12/21/24 History mg-hydrochlorothiazide 25 mg tablet venlafaxine 37.5 mg 37.5 mg PO DAILY 12/10/24 12/21/24 History capsule,extended release 24 hr colestipol 1 gram tablet 1 g PO BID #60 tabs 12/12/24 12/21/24 Rx Allergies Allergy/AdvReac Type Severity Reaction Status Date / Time No Known Allergies Allergy Verified 12/21/24 10:13 Exam Const: General: cooperative and healthy appearing Resp: Effort & Inspection: normal respiratory effort and able to speak in complete sentences Auscultation: clear to auscultation bilaterally Cardio: Rate: regular rate Rhythm: regular rhythm GI: Inspection: normal to inspection GI Palp: No No hepatosplenomegaly present Auscultation: normal bowel sounds Rectal Exam: deferred Skin: General skin exam: normal color Psych: Appearance: grossly normal Mental Status: mental status grossly normal Assessment and Plan Assessment and plan (1) Encounter for screening colonoscopy: Code(s): Z12.11 - Encounter for screening for malignant neoplasm of colon Status: Acute Assessment and Plan: The patient is deemed a good candidate for the procedure. Consent signed. Will proceed.
== END 2024-12-21 12:06 | disposition home or self-care (01) ==
PROVIDERS: Anesthesiology; PCP Physician Assistant Medical; Referring Provider Nurse Practitioner; Visit Provider Internal Medicine Gastroenterology
PROC: 0DJD8ZZ Inspection of Lower Intestinal Tract, Via Natural or Artificial Opening Endoscopic (ICD-10-PCS; CPT 45378; principal; 2024-12-21 11:30)
DX: Z12.11 Encounter for screening for malignant neoplasm of colon (principal); E66.9 Obesity, unspecified; Z68.39 Body mass index [BMI] 39.0-39.9, adult
CPT/HCPCS: 45378; J2003; J2704; J7120